=== PATIENT | male | born 1955 | race Caucasian/White ===

== ENCOUNTER 2021-01-31 05:17 | Emergency (ER) | payer OTHER, MEDICARE ==
[~2021-01-31] VITALS: Ht 182.9 cm; Wt 88.4 kg
[~2021-01-31 05:17] MED LIST: ASPIR-LOW81 MG PO; ATENOLOL50 MG PO; CYCLOBENZAPRINE10 MG PO; ECHINACEA80 MG PO; FISH OIL 1,0001 EAC1 PO; FLONASE ALLERG9.9 ML NS; GARLIC1 EACH PO; GEMFIBROZIL600 MG PO; GLUCOSAMINE &1 EAC1 PO; GLYBURIDE2.5 MG PO; HYDROCODON-ACE1 EA11 PO; INDOMETHACIN50 MG PO; LISINOPRIL40 MG PO; LOVASTATIN40 MG PO; METFORMIN HCL1000 MG PO; OMEPRAZOLE20 MG PO; TRAZODONE HCL50 MG PO; VITAMIN D32000 UNIT PO
[2021-01-31] MEDS ORDERED: TRULICITY1.5 MG/0.5 SQ (05:29)
[2021-01-31] MEDS ORDERED: FARXIGA10 MG PO (05:29)
[2021-01-31] MEDS ORDERED: DULOXETINE HCL60 MG PO (05:29)
[2021-01-31] MEDS ORDERED: GLIPIZIDE ER10 MG PO (05:29)
[2021-01-31] MEDS ORDERED: CELECOXIB200 MG PO (05:30)
[2021-01-31] MEDS ORDERED: ATORVASTATIN CA40 MG PO (05:30)
[2021-01-31] MEDS ORDERED: HYDROCODON-ACE1 EA10 PO (05:53)
== END 2021-01-31 06:02 | disposition home or self-care (01) ==
LOC: ED 05:17
DX: M25.512 Pain in left shoulder (principal); E11.9 Type 2 diabetes mellitus without complications; I10 Essential (primary) hypertension; E78.00 Pure hypercholesterolemia, unspecified; Z88.8 Allergy status to other drugs, medicaments and biological substances; Z79.899 Other long term (current) drug therapy; Z79.84 Long term (current) use of oral hypoglycemic drugs; Z79.82 Long term (current) use of aspirin
CPT/HCPCS: 73030; 99283-25

== ENCOUNTER 2021-06-30 17:12 | Emergency (ER) | payer OTHER, MEDICARE ==
[~2021-06-30] VITALS: Ht 182.9 cm; Wt 81.7 kg
[~2021-06-30 17:12] MED LIST changes: +ATORVASTATIN CA40 MG PO; +CELECOXIB200 MG PO; +DULOXETINE HCL60 MG PO; +FARXIGA10 MG PO; +GLIPIZIDE ER10 MG PO; +HYDROCODON-ACE1 EA10 PO; +TRULICITY1.5 MG/0.5 SQ
--- OUTSIDE RECORDS SUMMARY | 2021-06-30 17:14 | XMS ---
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 Chauncey has no Care Guidelines for this patient. Nenita VISIT COUNT (12 MO.) 2 KAPIL Jaeger TOTAL 2 NOTE: Visits indicate total known visits. ED/UCC VISIT TRACKING (12 MO.) 06/30/2021 17:12 KAPIL Denis [place] TYPE: Emergency COMPLAINT: - FALL, R SIDED PAIN 01/31/2021 05:17 KAPIL Denis [place] TYPE: Emergency COMPLAINT: - LT SHOULDER PAIN DIAGNOSES: - Allergy status to other drugs, medicaments and biological substances - Essential (primary) hypertension - Pain in left shoulder - manager terminal (current) use of aspirin - Other long term care phlebotomist (current) drug therapy - manager terminal (current) use of oral hypoglycemic drugs - Type 2 diabetes mellitus without complications - Pure hypercholesterolemia, unspecified INPATIENT VISIT TRACKING (12 MO.) No inpatient visits to display in this time frame [email or web address]
[2021-06-30] MEDS ORDERED: HYDROCODON-ACE1 EA10 PO (19:28)
== END 2021-06-30 19:51 | disposition home or self-care (01) ==
LOC: ED 17:12
DX: S22.31XA Fracture of one rib, right side, initial encounter for closed fracture (principal); E11.9 Type 2 diabetes mellitus without complications; I10 Essential (primary) hypertension; E78.00 Pure hypercholesterolemia, unspecified; Z88.8 Allergy status to other drugs, medicaments and biological substances; Z79.899 Other long term (current) drug therapy; Z79.84 Long term (current) use of oral hypoglycemic drugs; Z79.82 Long term (current) use of aspirin; W00.1XXA Fall from stairs and steps due to ice and snow, initial encounter
CPT/HCPCS: 71101; 99283-25